=== PATIENT | male | born 1940 | race Caucasian/White ===

== ENCOUNTER → 2021-02-04 | Outpatient (CLI) | payer MEDICARE ==
[~2021-02-04] MED LIST: ASPI81CH; CALCA500CH; HYDACE5325 PO; NAPR220; NAPR220 PO; Percocet 5-3251 EACH PO; TAMS.4ER PO
[2021-02-04 16:30] LABS: Source, Urine Clean Catch
[2021-02-04 19:35] LABS: Appearance, Urine Clear (Clear); Bilirubin, Urine Neg (Neg); Blood, Urine Neg (Neg); Color, Urine Yellow (P-Yellow); Glucose Qualitative, Urine Neg (Neg); Ketones, Urine Neg (Neg); Leukocyte Esterase, Urine 1+ (Neg); Nitrite, Urine Neg (Neg); Protein, Urine 2+ (Neg); Specific Gravity, Urine 1.015 (1.003-1.022); Urobilinogen, Urine 1+ (Normal)
[2021-02-04 20:04] LABS: Bacteria Mod /hpf; Calcium Oxalate Crystals Many /hpf; Mucus Light (0-Heavy); Red Blood Cells, Urine 0-2 /hpf (0-2); Squamous Epithelial Cells Not Seen /hpf (Few)
== END | disposition home or self-care (01) ==
LOC: LAB SHORT 16:29 → LAB 16:29
PROVIDERS: Internal Medicine
DX: R35.1 Nocturia (principal)
CPT/HCPCS: 81001; 87086

== ENCOUNTER 2021-04-02 08:49 | Day surgery (SDC) | payer MEDICARE ==
[~2021-04-02] VITALS: Ht 185.4 cm; Wt 99.3 kg
[~2021-04-02 08:49] MED LIST changes: +AMLO5; +Calcium Carbon500 MG; +MULVITA; +OMEGA-3 FISH O1 EAC6; +OMEP20ER; +Vitamin D1000 UNI1
[2021-04-02] MEDS ORDERED: Aspir 8181 MG (09:03)
--- NOTE | 2021-04-02 09:17 | NUR ---
04/02/21 0917 Sydnee Kovacs 1 TRY RIGHT HAND MISS
== END 2021-04-02 10:43 | disposition home or self-care (01) ==
LOC: ORSCSDS 08:49
PROVIDERS: Internal Medicine Gastroenterology
PROC: 0DBN8ZX Excision of Sigmoid Colon, Via Natural or Artificial Opening Endoscopic, Diagnostic (ICD-10-PCS; principal; 2021-04-02 10:00)
PROC: 0DBE8ZX Excision of Large Intestine, Via Natural or Artificial Opening Endoscopic, Diagnostic (ICD-10-PCS; principal; 2021-04-02 10:00)
PROC: 0DBL8ZX Excision of Transverse Colon, Via Natural or Artificial Opening Endoscopic, Diagnostic (ICD-10-PCS; principal; 2021-04-02 10:00)
DX: Z12.11 Encounter for screening for malignant neoplasm of colon (principal); Z86.010 Personal history of colon polyps; D12.3 Benign neoplasm of transverse colon; D12.5 Benign neoplasm of sigmoid colon; K52.9 Noninfective gastroenteritis and colitis, unspecified; K57.30 Diverticulosis of large intestine without perforation or abscess without bleeding; K64.8 Other hemorrhoids; I10 Essential (primary) hypertension; K21.9 Gastro-esophageal reflux disease without esophagitis; Z79.899 Other long term (current) drug therapy
CPT/HCPCS: 88305; J2704; J7120

== ENCOUNTER → 2021-06-19 | Outpatient (CLI) | payer MEDICARE ==
[~2021-06-19] MED LIST changes: +Aspir 8181 MG
== END | disposition home or self-care (01) ==
LOC: LAB SHORT 13:13
DX: R21 Rash and other nonspecific skin eruption (principal); D48.5 Neoplasm of uncertain behavior of skin; L57.8 Other skin changes due to chronic exposure to nonionizing radiation; L70.8 Other acne; L82.1 Other seborrheic keratosis; L85.3 Xerosis cutis; Z85.828 Personal history of other malignant neoplasm of skin
CPT/HCPCS: 87798

== ENCOUNTER 2023-01-27 12:22 | Emergency (ER) | payer MEDICARE ==
[~2023-01-27] VITALS: Ht 185.4 cm; Wt 105.2 kg
[2023-01-27 12:30] VITALS: BP 152/102
== END 2023-01-27 15:06 | disposition home or self-care (01) ==
LOC: ER 12:22
DX: S40.012A Contusion of left shoulder, initial encounter (principal); W01.0XXS Fall on same level from slipping, tripping and stumbling without subsequent striking against object, sequela
CPT/HCPCS: 73030; 99283-25; A9270

== ENCOUNTER 2024-09-08 06:55 | Observation (INO) | payer MEDICARE ==
[~2024-09-08] VITALS: Ht 185.4 cm; Wt 106.1 kg
[2024-09-08] VITALS (9 sets, daily range): BP systolic 104–177; BP diastolic 59–101
[~2024-09-08 06:55] MED LIST changes: +CYMBALTA30 M2 PO; -Calcium Carbon500 MG; +Calcium Carbon500 MG PO; +HYDCHL25; +JARDIANCE10 MG PO; -MULVITA; +MULVITA PO; +OLME20 PO; +OMEP20ER PO; -Vitamin D1000 UNI1; +Vitamin D1000 UNI1 PO; +XARELTO20 MG PO
[2024-09-08] MEDS ORDERED: GNP PAIN RLF P1 EACH PO (07:22)
[2024-09-08] MEDS ORDERED: FentaNYL Citrate 50 MCG/ML 2 ML Injection ONE (10:02)
[2024-09-08] MEDS ORDERED: HYDROcodone 5-APAP 325 TAB PO PRN (11:10)
[2024-09-08] MEDS ORDERED: Ondansetron HCl 2 MG / ML 2ML Vial IV PRN (11:10)
[2024-09-08] MEDS ORDERED: Acetaminophen 325 MG TABLET PO PRN (11:10)
[2024-09-08] MEDS ORDERED: Calcium Carbonate 500 MG Tab Chew PO PRN (11:10)
[2024-09-08] MEDS ORDERED: Acetaminophen 500MG/DP-Hydram 25MG HCL 1 Tab PO PRN (11:15)
[2024-09-08] MEDS ORDERED: Diltiazem HCl 180 MG Cap.CD PO SCH (11:30)
--- NOTE | 2024-09-08 16:25 | NUR ---
POST OP: REPORT RECEIVED AT BEDSIDE FROM PAYAL HUTCHINS RN. PT TO UNIT AT ABOUT 11:20. PT IS A/O, VSS. SURGICAL SITE WNL, R ARM IN SLING. PT ORIENTED TO ROOM AND ASKED TO USE CALL LIGHT IF NEEDS OOB. PT VERBALIZED UNDERSTANDING. PT AT BEDSIDE. TELE MONITOR APPLIED AND VERIFIED WITH AVIVA BERG
--- NOTE | 2024-09-08 16:45 | NUR ---
SUMMARY: PT HAS DONE WELL SINCE POST OP. VSS, HAS AMBULATED AND IS VOIDING. HAS DENIED CP AND INCISIONAL PAIN. R ARM IN SLING. TELE STABLE,NO CONCERNS AT THIS TIME. PT AT BEDSIDE. PLAN TO DC TOMORROW.
[2024-09-08] MEDS ORDERED: CeFAZolin Sodium 2,000 MG in NS 100 ML IV SCH (18:00)
[2024-09-09 04:32] LABS: Hematocrit 44.5 % (37.0-53.0); Hemoglobin 14.6 g/dL (13.5-17.5); Mean Corpuscular HGB 30.1 pg (26.0-34.0); Mean Corpuscular HGB Conc 32.8 g/dL (31.5-36.5); Mean Corpuscular Volume 92 fL (80-100); Mean Platelet Volume 11.1 fL (9.1-12.4); Platelet Count 173 K/mm3 (150-400); RDW Coefficient Variation 14.4 % (11.7-14.2); RDW Standard Deviation 48.7 fL (35.1-46.3); Red Blood Cell Count 4.85 M/mm3 (4.30-5.90); White Blood Cell Count 5.84 K/mm3 (4.00-11.30)
[2024-09-09 04:53] LABS: Bun/Creatinine Ratio 18.7 (12.0-20.0); Calcium, Blood 8.2 mg/dL (8.5-10.1); Creatinine, Blood 0.96 mg/dL (0.60-1.20); Potassium, Blood 3.9 mmol/L (3.5-5.5)
--- NOTE | 2024-09-09 05:17 | NUR ---
SHIFT SUMMARY AOX4. POD1-PACEMAKER PLACEMENT. VSS. TELE V PACED HR 60. PT DENIES CP OR PRESSURE. DENIES DYSPNEA. DENIES ANY PAIN OR DISCOMFORT. R ARM HAS BEEN IN SLING T/O NIGHT. PT UP TO VOID MULTx. TOLERATING PO. CALL LIGHT IN REACH & ABLE TO MAKE NEEDS KNOWN.
[2024-09-09 05:38] VITALS: BP 133/65
[2024-09-09] MEDS ORDERED: Omeprazole 20 MG CapCR PO SCH (06:00)
[2024-09-09 07:06] VITALS: BP 163/87
[2024-09-09] MEDS ORDERED: Losartan Potassium 25 MG Tab PO SCH (09:00)
[2024-09-09] MEDS ORDERED: Empagliflozin 10 MG TAB PO SCH (09:00)
[2024-09-09] MEDS ORDERED: Cholecalciferol 1000 Unit Tablet (=25MCG) PO SCH (09:00)
[2024-09-09] MEDS ORDERED: DULoxetine HCL 30 MG Cap DR PO SCH (09:00)
[2024-09-09] MEDS ORDERED: DILT180 PO (09:03)
--- NOTE | 2024-09-09 09:36 | NUR ---
DISCHARGE SUMMARY D/C EDUCATION GIVEN, PT AND VERBALIZED UNDERSTANDING. D/C VIA W/C, BELONGINGS SENT WITH SPOUSE.
== END 2024-09-09 09:30 | disposition home or self-care (01) ==
LOC: MHTC 06:55 → SURS 10:22 → MHTC 11:06 → SURS 11:10
PROVIDERS: ADMIT Internal Medicine Cardiovascular Disease
DX: I48.20 Chronic atrial fibrillation, unspecified (principal); I49.5 Sick sinus syndrome; I10 Essential (primary) hypertension; G20.A1 Parkinson's disease without dyskinesia, without mention of fluctuations; R55 Syncope and collapse; E78.5 Hyperlipidemia, unspecified; Z88.8 Allergy status to other drugs, medicaments and biological substances; Z91.040 Latex allergy status; Z91.011 Allergy to milk products
CPT/HCPCS: 33207; 36415; 71046; 80048; 85027; 99152; 99153; A9270; C1786; C1894; C1898; J0690; J3010; Q9967